=== PATIENT | male | born 1965 | race Caucasian/White ===

== ENCOUNTER 2023-07-20 15:25 | Emergency (ER) | payer OTHER ==
[~2023-07-20] VITALS: Ht 177.8 cm; Wt 90.7 kg
[2023-07-20] MEDS ORDERED: LIDOcaine HCl 1% (Local Anesth.) 20 ML VIAL STI STA (15:33)
[2023-07-20] MEDS ORDERED: Diph, Acellular Pertussis, Tet 0.5 ML/VIAL (Tdap) SDV IM ONE (15:35)
[2023-07-20] MEDS ORDERED: SODIUM CHLORIDE 500 ML BTL IR ONE (15:35)
[2023-07-20] MEDS ORDERED: POVIDONE IODINE 0.5 OZ/BTL TOP ONE (15:35)
[2023-07-20] MEDS ORDERED: NEOMYCIN-BACITRACIN-POLYMYXIN 0.5 GM/PAK PAK TOP ONE (15:35)
[2023-07-20 15:39] VITALS: BP 140/90
[2023-07-20] MEDS ORDERED: BUPIVACAINE HCL PF 0.5 % 50 MG/10 ML SDV STI ONE (15:40)
[2023-07-20] MEDS ORDERED: NAPROXEN500 MG PO (16:37)
[2023-07-20] MEDS ORDERED: KEFLEX500 MG PO (16:37)
[2023-07-20 16:39] VITALS: BP 140/90
== END 2023-07-20 16:59 | disposition home or self-care (01) | DRG 605 ==
LOC: ED 15:25
PROC: 0HQFXZZ Repair Right Hand Skin, External Approach (ICD-10-PCS; principal; 2023-07-20)
DX: S61.210A Laceration without foreign body of right index finger without damage to nail, initial encounter (principal); W23.1XXA Caught, crushed, jammed, or pinched between stationary objects, initial encounter; Y93.89 Activity, other specified; Y92.018 Other place in single-family (private) house as the place of occurrence of the external cause

== ENCOUNTER 2024-07-16 17:40 | Emergency (ER) | payer OTHER ==
[~2024-07-16] VITALS: Ht 177.8 cm; Wt 88.0 kg
[~2024-07-16 17:40] MED LIST: KEFLEX500 MG PO; NAPROXEN500 MG PO; PHENAZOPYRIDIN100 M1 PO
[2024-07-16] MEDS ORDERED: LIDOcaine HCl 1% (Local Anesth.) 20 ML VIAL STI STA (19:19)
[2024-07-16] MEDS ORDERED: POVIDONE IODINE 0.5 OZ/BTL TOP ONE (19:20)
[2024-07-16] MEDS ORDERED: NEOMYCIN-BACITRACIN-POLYMYXIN 0.5 GM/PAK PAK TOP ONE (19:20)
[2024-07-16] MEDS ORDERED: Diph, Acellular Pertussis, Tet 0.5 ML/VIAL (Tdap) SDV IM ONE (19:20)
[2024-07-16 19:32] VITALS: BP 132/88
== END 2024-07-16 20:05 | disposition home or self-care (01) | DRG 605 ==
LOC: ED 17:40
PROC: 0HQEXZZ Repair Left Lower Arm Skin, External Approach (ICD-10-PCS; principal; 2024-07-16)
DX: S51.812A Laceration without foreign body of left forearm, initial encounter (principal); I10 Essential (primary) hypertension; E78.5 Hyperlipidemia, unspecified; F17.290 Nicotine dependence, other tobacco product, uncomplicated; W26.0XXA Contact with knife, initial encounter
CPT/HCPCS: 90715